=== PATIENT | female | born 1985 | race Caucasian/White ===

== ENCOUNTER 2017-08-09 15:53 | Emergency (ER) | payer MEDICAID ==
[2017-08-09 16:30] LABS: URINE BLOOD (Dip) POC Trace-intact (NEGATIVE); URINE GLUCOSE (Dip) POC Negative (NEGATIVE); URINE KETONES (Dip) POC Trace (NEGATIVE); URINE LEUKOCYTE EST (Dip) POC 2+ (NEGATIVE); URINE NITRITE (Dip) POC Positive (NEGATIVE); URINE TOTAL PROTEIN POC Trace (NEGATIVE)
[2017-08-09 16:30] LABS: URINE PH (Dip) POC 7.5 (5.0-8.5)
== END 2017-08-09 17:07 | disposition home or self-care (01) ==
LOC: FTE 15:53
DX: N30.90 Cystitis, unspecified without hematuria (principal)
CPT/HCPCS: 81003; 81025; 87086; 99283

== ENCOUNTER 2017-09-25 18:08 | Emergency (ER) | payer MEDICAID | END 2017-09-25 20:37 | disposition home or self-care (01) | LOC: E/R 18:08 | DX: N30.00 Acute cystitis without hematuria (principal) | CPT/HCPCS: 99283; Z7502 ==

== ENCOUNTER 2017-10-01 19:18 | Emergency (ER) | payer MEDICAID | END 2017-10-01 19:45 | disposition home or self-care (01) | LOC: E/R 19:18 | DX: S80.212A Abrasion, left knee, initial encounter (principal); W01.198A Fall on same level from slipping, tripping and stumbling with subsequent striking against other object, initial encounter; Y92.9 Unspecified place or not applicable | CPT/HCPCS: 99283; Z7502 ==

== ENCOUNTER 2018-01-30 20:14 | Emergency (ER) | payer MEDICAID ==
[2018-01-30 23:01] LABS: URINE BLOOD (Dip) POC 3+ (NEGATIVE); URINE GLUCOSE (Dip) POC Negative (NEGATIVE); URINE KETONES (Dip) POC Negative (NEGATIVE); URINE LEUKOCYTE EST (Dip) POC 2+ (NEGATIVE); URINE NITRITE (Dip) POC Positive (NEGATIVE); URINE TOTAL PROTEIN POC 2+ (NEGATIVE)
[2018-01-30 23:01] LABS: URINE PH (Dip) POC 7.5 (5.0-8.5)
[2018-01-30] MEDS: CEFTRIAXONE 1 GM INJ IM (23:31)
[2018-01-30] MEDS: LIDOCAINE 1% (MDV) 20 ML INJ SC (23:32)
== END 2018-01-31 00:01 | disposition home or self-care (01) ==
LOC: FTE 01-31 00:01
DX: N39.0 Urinary tract infection, site not specified (principal)
CPT/HCPCS: 81003; 81025; 96372; 99284-25

== ENCOUNTER 2018-02-08 10:08 | Emergency (ER) | payer MEDICAID | END 2018-02-08 10:48 | disposition home or self-care (01) | LOC: FTE 10:08 | DX: S01.531A Puncture wound without foreign body of lip, initial encounter (principal); R40.2412 Glasgow coma scale score 13-15, at arrival to emergency department; W26.8XXA Contact with other sharp object(s), not elsewhere classified, initial encounter; Y92.89 Other specified places as the place of occurrence of the external cause | CPT/HCPCS: 99283 ==

== ENCOUNTER 2018-03-09 14:07 | Emergency (ER) | payer MEDICAID ==
[2018-03-09 14:45] LABS: URINE BLOOD (Dip) POC Negative (NEGATIVE); URINE GLUCOSE (Dip) POC Negative (NEGATIVE); URINE KETONES (Dip) POC Negative (NEGATIVE); URINE LEUKOCYTE EST (Dip) POC Negative (NEGATIVE); URINE NITRITE (Dip) POC Negative (NEGATIVE); URINE TOTAL PROTEIN POC Negative (NEGATIVE)
[2018-03-09] MEDS: KETOROLAC 30 MG INJ IM (14:58)
== END 2018-03-09 16:12 | disposition home or self-care (01) ==
LOC: FTE 14:07
DX: R30.0 Dysuria (principal)
CPT/HCPCS: 81003; 81025; 87086; 96372; 99284-25

== ENCOUNTER 2018-11-10 17:24 | Emergency (ER) | payer MEDICAID | END 2018-11-10 19:22 | disposition home or self-care (01) | LOC: FTE 17:24 | DX: J02.9 Acute pharyngitis, unspecified (principal) | CPT/HCPCS: 87880; 99283 ==